=== PATIENT | female | born 1970 | race Caucasian/White ===

== ENCOUNTER 2016-12-14 09:36 | Emergency (ER) | payer BC | END 2016-12-14 10:39 | disposition home or self-care (01) | LOC: ER 09:36 | DX: S43.011A Anterior subluxation of right humerus, initial encounter (principal); F32.9 Major depressive disorder, single episode, unspecified; X58.XXXA Exposure to other specified factors, initial encounter; Y93.E9 Activity, other interior property and clothing maintenance | CPT/HCPCS: 73020-RT; 73030-RT; 73060-RT; 96374; 96375; 99283; J2405; P9045 ==